=== PATIENT | female | born 1955 | race Caucasian/White ===

== ENCOUNTER 2017-05-21 08:28 | Emergency (ER) ==
[2017-05-21 08:42] VITALS: BP 108/73; TEMP 97.6; BMI 24.7
--- NOTE | 2017-05-21 08:54 | ED.PDOC ---
General ED Provider: Dr. TIFFANIE GALAVIZ Chief Complaint: Fall Stated Complaint: Fell down basement stairs (12 stairs) 1 week ago, injurying left shoulder and right inguinal region. Left on driving trip and pain, expec in shoulder, has worsened. inguinal pain has shifted to posterior upper left leg. Leg pain unchanged by walking or standing. Sitting increases pain in left leg. Shoulder hurts with ROM or lifting. Hurts more when supine. Time Seen by Physician: 08:53 Mode of Arrival: Walk-In Information Source: Patient Exam Limitations: No limitations Nursing and Triage Documentation Reviewed and Agree: Yes Musculoskeletal Complaint Exam - Shoulder Pain Complaint/Exam Mechanism of Injury: Reports: Trauma (fell down 12 stairs) Onset/Duration: 1 week Symptoms Are: Still present Timing: Constant Initial Severity: Severe Current Severity: Moderate Location: Reports: Discrete (left shoulder medial and superiorly, and down left upper arm medially) Character: Reports: Aching, Throbbing Alleviating: Reports: Rest Aggravating: Reports: Movement, Lifting Associated Signs and Symptoms: Reports: Bruising (small area on medial-superior left shoulder and down medial aspect of left upper arm) Related History: Reports: Dominant hand right Non-Orthopedic Risk Factors: Reports: None DVT Risk Factors: Reports: Recent trauma Septic Arthritis Risk Factors: Reports: None Related Surgical History: Reports: None Tenderness: Present: Proximal humerus (actually tender along medial aspect of left upper arm, soft tissue soreness. no evidence of bony involvement) Differential Diagnoses: Contusion, Closed Fracture, Strain - Lower Extremity Complaint/Exam Location of Pain: Reports: Right, Thigh Mechanism of Injury: Reports: Trauma Onset/Duration: 1 week Symptoms Are: Still present Onset of Pain: Reports: Days Initial Severity: Moderate Current Severity: Mild Location: Reports: Diffuse (initially right inguinal pain, gradually shift to right upper posterior upper leg) Character: Reports: Aching, Throbbing Alleviating: Reports: Rest Aggravating: Reports: Movement (sitting down) Able to Bear Weight: Yes Associated Signs and Symptoms: Denies: Swelling, Redness, Bruising, Fever, Weakness, Numbness, Tingling DVT Risk Factors: Reports: Recent trauma Septic Arthritis Risk Factors: Reports: None Related Surgical History: Reports: None Lower Extremity Findings: Present: Tenderness (in small area of right upper posterior right leg, minimal tenderness in right inguinal area) NV Bundle Intact Distal to Injury: Yes Compartment Syndrome Risk Factors: Present: Pain Esau's Sign Present: No Differential Diagnoses: Contusion Review of Systems - Review Of Systems Constitutional: Reports: No symptoms Eyes: Reports: No symptoms Ears, Nose, Mouth, Throat: Reports: No symptoms Respiratory: Reports: No symptoms Cardiac: Reports: No symptoms GI: Reports: No symptoms : Reports: No symptoms Musculoskeletal: Reports: Joint pain (left shoulder medial-superiorly), Muscle pain Skin: Reports: Bruising (left shoulder and left upper medial arm) Neurological: Reports: No symptoms All Other Systems: Reviewed and Negative Past Medical History - Past Medical History Previously Healthy: Yes Endocrine: Reports: Dyslipidemia Cardiovascular: Reports: Hypertension Respiratory: Reports: None Hematological: Reports: None Gastrointestinal: Reports: GERD Genitourinary: Reports: None Neuro/Psych: Reports: None Musculoskeletal: Reports: Arthritis Cancer: Reports: None Last Menstrual Period: NONE - Surgical History General Surgical History: Reports: Hysterectomy (w/o oophorectomy), Orthopedic ( feet) - Family History Family History: Reports: Unknown - Social History Smoking Status: Former smoker Hx Substance Use: No Alcohol Screening: Occasionally Lives: With family - Immunizations Tetanus Shot up to Date: No Influenza Vaccine within 12 Months: No Pneumococcal Vaccine up to Date: No Physical Exam - Physical Exam Appearance: Well-appearing, Well-nourished Ill-appearing: None Pain Distress: Moderate Eyes: DEJA, EOMI, Conjunctiva clear ENT: Ears normal, Nose normal, Oropharynx normal Neck: Supple Respiratory: Airway patent, Breath sounds clear, Breath sounds equal, Respirations nonlabored Cardiovascular: RRR, Pulses normal, No rub, No murmur GI/: Soft, Nontender, No masses, Bowel sounds normal, No Organomegaly Musculoskeletal: Normal strength, No edema, No calf tenderness (tenderness also of right posterior superior aspet of right upper leg, unaffected by ROM active or passive or against resistance.), Limited ROM (left shoulder increased pain with active or passive flexion, and less so with extension. L elbow unremarkable.) Skin: Warm, Dry, Normal color (small ecchymosis of left shoulder medial- superiorly and along left upper arm medially. No other ecchymosis.) Neurological: Sensation intact, Motor intact, Reflexes intact, Cranial nerves intact, Alert, Oriented Psychiatric: Affect appropriate, Mood appropriate Critical Care Note - Critical Care Note Total Time (mins): 0 Course - Course Orders, Labs, Meds: Orders Category Date Time Status SHOULDER, LEFT MIN 2V Stat RADS 05/21/17 09:01 Taken Vital Signs: Temp Pulse Resp BP Pulse Ox 05/21/17 08:29 97.6 F 84 20 108/73 96 Departure - Departure Time of Disposition: 09:32 Disposition: HOME SELF-CARE Discharge Problem: Sprain of left shoulder Qualifiers: Encounter type: initial encounter Shoulder sprain type: unspecified sprain Qualified Code(s): S43.402A - Unspecified sprain of left shoulder joint, initial encounter Contusion of right leg Qualifiers: Encounter type: initial encounter Qualified Code(s): S80.11XA - Contusion of right lower leg, initial encounter Instructions: Contusion in Adults (ED), Shoulder Sprain (ED) Condition: Good Pt referred to PMD for follow-up: No (if no better in one week, see doctor) Additional Instructions: wear sling for one week Allergies/Adverse Reactions: Allergies No Known Allergies Allergy (Verified 05/21/17 08:43) Home Medications: Ambulatory Orders Acetaminophen with Codeine [Tylenol #3 Tab] 1 tab PO Q4H PRN #20 tablet Amlodipine Besylate [Norvasc] 10 mg PO DAILY 05/21/17 Atorvastatin Calcium [Lipitor] 20 mg PO BEDTIME 05/21/17 Labetalol HCl [Trandate] 100 mg PO BID 05/21/17 Meloxicam [Mobic] 15 mg PO DAILY 05/21/17 Pantoprazole Sodium [Protonix] 40 mg PO QDAC 05/21/17 Zolpidem Tartrate [Ambien] 10 mg PO BEDTIME 05/21/17 Disposition Discussed With: Patient
--- NOTE | 2017-05-21 09:28 | DI ---
Exam: Three x-rays of the left shoulder. Comparison: None available. Reason for exam: Fall with pain. FINDINGS: No acute fracture or dislocation. The humeral head articulates with the bony glenoid. Th e scapular Y-view is unremarkable. The clavicle is intact. The acromioclavicular joint spaces well maintained. Impression: No acute fracture or dislocation in the left shoulder
== END 2017-05-21 09:43 | disposition home or self-care (01) ==
LOC: ED 08:28
DX: S43.402A Unspecified sprain of left shoulder joint, initial encounter (principal); S80.11XA Contusion of right lower leg, initial encounter; S79.921A Unspecified injury of right thigh, initial encounter; W10.9XXA Fall (on) (from) unspecified stairs and steps, initial encounter
CPT/HCPCS: 99283